=== PATIENT | female | born 1955 | race Caucasian/White ===

== ENCOUNTER 2023-01-18 14:57 | Outpatient (CLI) | payer MEDICARE, SELFPAY ==
--- NOTE | ~2023-01-18 | MR_ITS ---
EXAMINATION: MR knee RT wo con DATE: 01/18/2023 15:50 INDICATION: Acute onset right knee pain TECHNIQUE: Magnetic resonance imaging (MRI) of the right knee was performed without intravenous contr ast. Sequences included coronal PD-weighted FSE, coronal PD-weighted FS FSE, sagittal T2-weighted FS E, sagittal PD-weighted FS FSE and axial PD weighted fat saturated FSE. COMPARISON: None. FINDINGS: Medial compartment: Small tear of likely radial orientation extending across the inner two thirds of the posterior horn o f the medial meniscus. Mild nonuniform joint space narrowing with partial thickness cartilage loss wi th smooth chondral surface along the medial tibial plateau and anterior to central weightbearing medi al femoral condyle. Lateral compartment: Lateral meniscus is normal. Partial-thickness chondral fissuring at the central aspect of the lateral tibial plateau. Patellofemoral compartment: Deep chondral fissuring with mild underlying subarticular edema-like signal change at the central asp ect of the patellar apical ridge. Deep chondral ulceration with additional subtle cortical irregulari ty and mild subarticular edema-like signal change at the inferior aspect of the medial trochlea. Ligaments and tendons: Anterior and posterior cruciate ligaments are normal. The medial collateral ligament and fibular willian ateral ligament complex are normal. Mild distal quadriceps and proximal patellar tendinopathy. The vi sualized medial and lateral hamstring tendons as well as the iliotibial band are normal. Fluid: Moderate-sized knee joint effusion. 5 mm ovoid likely loose chondral body at the lateral side of the suprapatellar pouch. Osseous/other: Normal marrow signal aside from the previous noted small regions of subarticular edema-like signal ch uche. No fracture or pathologic marrow replacing process. IMPRESSION: 1. Radial tear at the posterior root of the medial meniscus. 2. 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 3. Likely reactive moderate sized right knee joint effusion. Reviewed, dictated and finalized at location B.
== END 2023-01-18 14:58 | disposition home or self-care (01) ==
PROVIDERS: PCP Family Medicine; Visit Provider Nurse Practitioner
DX: S83.241A Other tear of medial meniscus, current injury, right knee, initial encounter (principal); X58.XXXA Exposure to other specified factors, initial encounter; M17.11 Unilateral primary osteoarthritis, right knee; M25.461 Effusion, right knee
CPT/HCPCS: 73721